=== PATIENT | female | born 1950 | race Caucasian/White ===

== ENCOUNTER → 2016-04-26 | Outpatient (CLI) | payer BC, MEDICARE ==
[~2016-04-26] MED LIST: ASPIR-TRIN325 MG PO; ASPIRIN ENTERI325 M1 PO; ASPIRIN PO; ATENOLOL PO; CARAFATE1 GM PO; CLOPIDOGREL75 MG PO; CYMBALTA30 M1 PO; CYMBALTA30 MG PO; DULOXETINE HCL30 MG PO; LASIX20 MG PO; LIPITOR40 MG PO; NORVASC10 MG PO; PLAVIX PO; PREDNISONE PO; PROAIR HFA8.5 GM; PROAIR HFA8.5 GM INH; PROTONIX PO; SOD BICARBONATE PO; SULFAMETHOXAZO1 EAC1 PO; VITAMIN D400 UNI2 PO; XANAX1 MG PO; ZEMPLAR1 MCG PO
[2016-04-26 10:46] LABS: BASOPHIL# 0.1 X10e3 (0-0.3); BASOPHIL% 0.7 % (0-2.5); EOSINOPHIL# 0.1 X10e3 (0-0.7); EOSINOPHIL% 1.6 % (0.0-7.0); HEMATOCRIT 27.6 % (35.0-45.0); HEMOGLOBIN 8.7 gm/dL (12.0-16.0); LYMPHOCYTE# 1.4 X10e3 (1.0-3.5); LYMPHOCYTE% 16.8 % (17.0-45.0); MEAN CELL VOLUME 108.2 FL (83-96); MEAN CORPUSCULAR HEMOGLOBIN 34.2 PG (28-34); MEAN CORPUSCULAR HGB CONC 31.6 g/dL (30-36); MEAN PLATELET VOLUME 8.4 FL (6.5-11.5); MONOCYTE# 0.7 X10e3 (0-1.0); MONOCYTE% 8.7 % (3.0-12.0); NEUTROPHIL# 5.9 X10e3 (1.5-7.1); NEUTROPHIL% 72.2 % (40-75); PLATELET COUNT 239 X10e3 (140-420); RED BLOOD COUNT 2.55 X10e (3.90-5.30); RED CELL DISTRIBUTION WIDTH 18.2 % (11.0-15.5); WHITE BLOOD COUNT 8.2 X10e3 (4.0-10.5)
[2016-04-26 10:48] LABS: DIFF IND YES
[2016-04-26 11:07] LABS: ANISOCYTOSIS SL; PLATELET ESTIMATE NORMAL (NORMAL)
[2016-04-26 11:15] LABS: BUN/CREATININE RATIO 7.27; CALCIUM SERUM 9.8 mg/dL (8.4-10.2); CREATININE SERUM 4.4 mg/dL (0.6-1.4); GLOM FILT RATE Estimated 10.7 mL/min (>60); POTASSIUM 3.6 mmol/L (3.5-5.1)
== END | disposition home or self-care (01) ==
LOC: CSSDAY 10:13
PROVIDERS: Internal Medicine Nephrology
DX: N18.4 Chronic kidney disease, stage 4 (severe) (principal); D63.1 Anemia in chronic kidney disease; Z79.899 Other long term (current) drug therapy
CPT/HCPCS: 80048; 85025; 96372; 96374; J0885; Q0138

== ENCOUNTER → 2016-05-01 | Outpatient (CLI) | payer BC, MEDICARE ==
[2016-05-01 12:15] LABS: HEMATOCRIT 29.2 % (35.0-45.0); HEMOGLOBIN 9.2 gm/dL (12.0-16.0)
== END | disposition home or self-care (01) ==
LOC: CSSDAY 11:33
PROVIDERS: Internal Medicine Nephrology
DX: N18.5 Chronic kidney disease, stage 5 (principal); D63.1 Anemia in chronic kidney disease; Z79.899 Other long term (current) drug therapy
CPT/HCPCS: 85014; 85018; 87340; 96372; J0885

== ENCOUNTER → 2016-07-18 | Outpatient (CLI) | payer BC ==
--- NOTE | ~2016-07-18 | EKG ---
PATIENT: ANASTACIO LOZANO UNIT #: [id number] Ventricular Rate: 109 BPM Atrial Rate: 109 BPM P-R Interval: 140 ms QRS Duration: 76 ms Q-T Interval: 346 ms QTC Calculation(Bezet): 465 ms P [place]: 76 degrees Calculated R [place]: 64 degrees Calculated T [place]: 64 degrees Diagnosis Line: Sinus tachycardia Diagnosis Line: Possible Left atrial enlargement Diagnosis Line: Borderline ECG Diagnosis Line: When compared with ECG of 03-MAY-2015 12:27, Diagnosis Line: Vent. rate has increased BY 47 BPM Diagnosis Line: Confirmed by EL CRAWLEY MD ([id number]) on Diagnosis Line: 07/19/2016 8:48:07 AM INTERPRETING MD: MISBAH JENKINS
[2016-07-18 13:47] LABS: HEMATOCRIT 31.9 % (35.0-45.0); HEMOGLOBIN 9.8 gm/dL (12.0-16.0); MEAN CORPUSCULAR HEMOGLOBIN 32.8 PG (28-34); MEAN CORPUSCULAR HGB CONC 30.7 g/dL (30-36); MEAN PLATELET VOLUME 9.6 FL (6.5-11.5); RED BLOOD COUNT 2.98 X10e (3.90-5.30); RED CELL DISTRIBUTION WIDTH 24.2 % (11.0-15.5); WHITE BLOOD COUNT 7.7 X10e3 (4.0-10.5)
[2016-07-18 14:01] LABS: CALCIUM SERUM 8.9 mg/dL (8.4-10.2); CREATININE SERUM 2.6 mg/dL (0.6-1.4); GLOM FILT RATE Estimated 18.5 mL/min (>60); POTASSIUM 4.1 mmol/L (3.5-5.1)
== END | disposition home or self-care (01) ==
LOC: CAMB 12:57
PROVIDERS: Surgery Vascular Surgery
DX: E78.00 Pure hypercholesterolemia, unspecified (principal); I12.0 Hypertensive chronic kidney disease with stage 5 chronic kidney disease or end stage renal disease; N18.6 End stage renal disease
CPT/HCPCS: 36415; 80048; 85027; 93005

== ENCOUNTER → 2016-08-03 | Day surgery (SDC) | payer BC, MEDICARE ==
--- NOTE | ~2016-08-03 | OR ---
Unit #: [id number] #: [id number] Patient: ANASTACIO LOZANO [id number] [address] [place], [place] [address] [id number] O MR#: [id number] NAME: ANASTACIO LOZANO. ROOM: Date of Procedure: 08/03/2016 Admission Date: 08/03/2016 Surgeon: Analilia Leyva M.D. : 1950 Attending Physician: Analilia Leyva M.D. Primary Care Physician: Yovani Neal M.D. OPERATIVE REPORT PREOPERATIVE DIAGNOSIS Chronic renal insufficiency. POSTOPERATIVE DIAGNOSIS Chronic renal insufficiency. PROCEDURE PERFORMED Creation of a right brachiocephalic arteriovenous fistula. ANESTHESIA MAC. COMPLICATIONS None. ESTIMATED BLOOD LOSS 20 mL. INDICATIONS FOR PROCEDURE The patient is a 65-year-old female with a history of chronic renal insufficiency, requiring long-term dialysis access. She was recommended creation of a right brachiocephalic fistula based on preoperative vein mapping. She was understood and told about the planned procedure including the risks and benefits and she wishes to proceed. DESCRIPTION OF PROCEDURE The patient was taken to the operating room and placed on the operating room table in supine position. Following MAC anesthesia, the patient's right arm was prepped and draped in normal standard manner. Using ultrasound, the cephalic vein and brachial arteries were identified and mapped on the skin. 1% lidocaine was infused in a transverse fashion across the antecubital fossa and then incision was created and taken down through subcutaneous tissues with cautery. The dissection identified the cephalic vein, which was dissected free circumferentially along its length for roughly 5 cm and the vein appeared quite adequate for use as a fistula. Side branches were doubly ligated and transected once encountered. Continued medial dissection identified the brachial artery pulsation and then the brachial artery was dissected free circumferentially and looped with vessel loops proximally and distally. Side branches were controlled with surgical clips. The patient was given heparin 100 units/kg and allowed to circulate for 3 minutes. The distal cephalic vein was then clamped with a right angle clamp and then the vein Unit #: [id number] #: [id number] Patient: ANASTACIO LOZANO was transected and the distal stump was tied with a 3-0 silk tie. The remainder of the vein was then flushed with heparinized saline and then was distended excellently. The vein was brought over to the brachial artery to identify the area of the anastomosis. The brachial artery was clamped proximally and distally and a longitudinal arteriotomy was created and extended with De La O scissors. The vein was then beveled and anastomosed to the brachial artery with a running 6-0 Prolene suture. Upon completion, clamps were removed and flow was restored. Good thrill was noted in the fistula and a good radial pulse was noted at the wrist. The heparin was reversed with protamine. Surgical oozing in the subcutaneous tissues was controlled with cautery. No further bleeding was noted and the wound was then closed in 2 layers with the subcutaneous running 3-0 Vicryl suture and 4-0 Monocryl suture for skin. The incision was washed and dressing was applied and the procedure was terminated. The patient tolerated the procedure well and was taken to the recovery room in stable condition. All needle, sponge, and instrument counts were correct at the end of the case. Dictated by... Radha Beckman/swapna TD: 08/10/2016 01:59 JOB #: [id number] OPERATIVE REPORT Page 1 of 1 X Analilia Leyva MD X PROCEDURE OPERATIVE NOTE
== END | disposition home or self-care (01) ==
LOC: CSUR 07-20 11:30
DX: I12.0 Hypertensive chronic kidney disease with stage 5 chronic kidney disease or end stage renal disease (principal); N18.6 End stage renal disease; M19.90 Unspecified osteoarthritis, unspecified site; F17.210 Nicotine dependence, cigarettes, uncomplicated; J44.9 Chronic obstructive pulmonary disease, unspecified; E78.00 Pure hypercholesterolemia, unspecified; Z88.1 Allergy status to other antibiotic agents; Z88.5 Allergy status to narcotic agent; Z80.3 Family history of malignant neoplasm of breast; Z90.710 Acquired absence of both cervix and uterus; Z98.890 Other specified postprocedural states; Z99.2 Dependence on renal dialysis; Z79.899 Other long term (current) drug therapy; Z79.01 Long term (current) use of anticoagulants; Z79.82 Long term (current) use of aspirin
CPT/HCPCS: J1644; J2250; J2370; J2720; J3010; J3370

== ENCOUNTER → 2016-10-10 | Outpatient (CLI) | payer BC, MEDICARE ==
--- NOTE | ~2016-10-10 | US37 ---
[facility] A Service of [facility] & [facility] RADIOLOGY TEXT RESULTS PATIENT: ANASTACIO LOZANO LOCATION: CNIV : [birth year] UNIT #: [id number] AGE: [address]: Mary Manuel SEX: F ORDER DR: [id number] [facility] [address] [place], [place] [address] [id number] O MR#: [id number] Acc #: [id number] NAME: ANASTACIO LOZANO : 1950 SEX: F STUDY DATE/TIME: 10/10/2016 14:04 UNIT: CNIV ROOM: STUDY DESCRIPTION: US Carotid W/Doppler Bilateral Attending Physician: Mary Manuel A.P.R.N. Referring Physician: Mary Manuel A.P.R.N. Ordering Physician: Mary Manuel A.P.R.N. Primary Care Physician: Yovani Neal M.D. MEDICAL IMAGING REPORT This report is preliminary unless electronic signature is present EXAM Carotid duplex scan, 10/10/2016. HISTORY Carotid stenosis. FINDINGS The right common carotid artery has a small amount of dense plaque. There is dense heterogeneous plaque in the right carotid bulb that extends up into the proximal internal and external carotid arteries. Peak systolic velocity in the mid right internal carotid artery is 124 cm/sec, with an end diastolic velocity of 32 cm/sec. The ICA:CCA ratio on the right is 1.5. Peak systolic velocity in the right external carotid artery is 106 cm/sec. The right vertebral artery is patent with antegrade flow. The left common carotid artery has a small amount of dense plaque. There is heterogeneous dense plaque in the left carotid bulb that extends up into the proximal internal and external carotid arteries. Peak systolic velocity in the proximal left internal carotid artery is 134 cm/sec, with an end diastolic velocity of 28 cm/sec. The ICA:CCA ratio on the left is 2.1. Peak systolic velocity in the left external carotid artery is 82 cm/sec. The left vertebral artery is patent with antegrade flow. IMPRESSION Plaque, but no significant stenosis (less than 50%) in the right internal carotid artery. Moderate stenosis (50% to 69%) in the left internal carotid artery. No significant stenosis of the external carotid arteries on either side. Patent vertebral arteries bilaterally with antegrade flow. Dictated by... [facility] A Service of [facility] & [facility] RADIOLOGY TEXT RESULTS PATIENT: ANASTACIO LOZANO LOCATION: [facility] : [birth year] UNIT #: [id number] AGE: [address]: Mary Manuel SEX: F ORDER DR: Sundar Ralph M.D. THIS IS AN ELECTRONICALLY VERIFIED REPORT Snudar Ralph M.D. at 10/12/2016 7:29 AM Gerry TD: 10/11/2016 14:19 JOB #: [id number] MEDICAL IMAGING REPORT Page 1 of 1 COPY
--- NOTE | ~2016-10-10 | US135 ---
[facility] A Service of [facility] & [facility] RADIOLOGY TEXT RESULTS PATIENT: ANASTACIO LOZANO LOCATION: CNIV : [birth year] UNIT #: [id number] AGE: [address]: Mary Manuel SEX: F ORDER DR: [id number] [facility] [address] [place], [place] [address] [id number] O MR#: [id number] Acc #: [id number] NAME: ANASTACIO LOZANO : 1950 SEX: F STUDY DATE/TIME: 10/10/2016 13:34 UNIT: CNIV ROOM: STUDY DESCRIPTION: US U/L Ext Art Study Comp Angel Attending Physician: Mary Manuel A.P.R.N. Referring Physician: Mary Manuel A.P.R.N. Ordering Physician: Mary Manuel A.P.R.N. Primary Care Physician: Yovani Neal M.D. MEDICAL IMAGING REPORT This report is preliminary unless electronic signature is present EXAM Bilateral lower extremity segmental pressure study, 10/10/2016 REASON FOR EXAM Peripheral arterial disease. FINDINGS The right brachial pressure is not obtained due to an indwelling fistula and the left brachial pressure is 101. Right high thigh pressure is 158, low thigh 161, calf 175, dorsalis pedis 152 and posterior tibial 161 for an PAXTON of 1.59 and a first toe pressure of 97 mmHg. Left high thigh pressure is 152, low thigh 162, calf 140, dorsalis pedis 136 and posterior tibial 145 for an PAXTON of 1.44 and a first toe pressure of 90 mmHg. PVR waveform from high thigh through ankle are intact and symmetric at all levels bilateral. First digital waveforms are diminished bilateral. Arterial waveforms at the dorsalis pedis and posterior tibial arteries demonstrated triphasic waveforms bilateral. IMPRESSION No arterial insufficiency in either the right or the left lower extremity although pressures are elevated, likely consistent with noncompressible arterial disease, but waveforms are normal throughout. There is adequate perfusion of the first toes. Dictated by... Analilia Leyva M.D. [facility] A Service of [facility] & [facility] RADIOLOGY TEXT RESULTS PATIENT: ANASTACIO LOZANO LOCATION: [facility] : [birth year] UNIT #: [id number] AGE: [address]: Mary Manuel SEX: F ORDER DR: THIS IS AN ELECTRONICALLY VERIFIED REPORT Analilia Leyva M.D. at 10/18/2016 4:08 PM FPN/alejandra TD: 10/10/2016 23:04 JOB #: [id number] MEDICAL IMAGING REPORT Page 1 of 1 COPY
== END | disposition home or self-care (01) ==
LOC: CNIV 13:24
DX: I65.23 Occlusion and stenosis of bilateral carotid arteries (principal); I73.9 Peripheral vascular disease, unspecified
CPT/HCPCS: 93880; 93923